=== PATIENT | female | born 1950 | race Caucasian/White ===

== ENCOUNTER 2017-06-15 11:57 | Emergency (ER) | payer MEDICAID ==
[~2017-06-15] VITALS: Ht 157.5 cm; Wt 79.0 kg
[2017-06-15 12:24] VITALS: BP 128/93
[2017-06-15 14:01] LABS: HEMATOCRIT. 41.4 % (36.0-48.0); HEMOGLOBIN. 13.7 g/dL (12.0-16.0); MEAN CORPUSCULAR HEMOGLOBIN 28.4 pg (28.0-32.0); MEAN CORPUSCULAR VOLUME 85.9 fL (81.0-99.0); MEAN PLATELET VOLUME 7.5 fl (7.4-10.4); PLATELET 197 x1000/uL (130-400); RED BLOOD CELL COUNT 4.81 mill/uL (4.2-5.4); RED CELL DISTRIBUTION WIDTH 14.1 % (11.6-14.6)
[2017-06-15 14:17] LABS: PLATELET ESTIMATE NORMAL
[2017-06-15 14:22] LABS: CHLORIDE 107 mEq/L (98-107)
== END 2017-06-15 15:42 | disposition home or self-care (01) ==
LOC: ER 13:13
DX: R05 Cough (principal); R09.3 Abnormal sputum; I10 Essential (primary) hypertension
CPT/HCPCS: 36415; 71045; 80053; 85025; 99285

== ENCOUNTER 2018-06-22 23:09 | Emergency (ER) | payer MEDICAID ==
[~2018-06-22] VITALS: Ht 157.5 cm; Wt 74.2 kg
[~2018-06-22 23:09] MED LIST: NIFE30TA94 PO; PANT40TA4 PO
[2018-06-23] MEDS ORDERED: IBUPROFEN 600MG TABLET PO ONE (03:45)
[2018-06-23 04:22] VITALS: BP 143/85
== END 2018-06-23 04:43 | disposition home or self-care (01) ==
LOC: ER 23:15
DX: J06.9 Acute upper respiratory infection, unspecified (principal); I10 Essential (primary) hypertension; Z90.49 Acquired absence of other specified parts of digestive tract; Z98.890 Other specified postprocedural states; Z79.899 Other long term (current) drug therapy
CPT/HCPCS: 71045; 99283

== ENCOUNTER 2018-11-23 21:07 | Emergency (ER) | payer MEDICAID ==
[~2018-11-23] VITALS: Ht 157.5 cm; Wt 77.5 kg
[2018-11-24] MEDS ORDERED: TRAMADOL 50MG TABLET PO ONE (01:30)
[2018-11-24 01:47] LABS: CHLORIDE 108 mEq/L (98-107)
[2018-11-24 01:58] LABS: BASOPHILS % 0.9 % (0.0-2.0); EOSINOPHILS % 6.1 % (0.0-5.0); HEMATOCRIT. 39.9 % (36.0-48.0); HEMOGLOBIN. 13.5 g/dL (12.0-16.0); MEAN CORPUSCULAR HEMOGLOBIN 29.4 pg (28.0-32.0); MEAN CORPUSCULAR VOLUME 87.2 fL (81.0-99.0); MONOCYTES % 12.1 % (2.0-8.0); NEUTROPHILS % 47.9 % (40.0-76.0); PLATELET 230 x1000/uL (130-400); RED BLOOD CELL COUNT 4.58 mill/uL (4.2-5.4); RED CELL DISTRIBUTION WIDTH 14.5 % (11.6-14.6)
[2018-11-24 04:49] VITALS: BP 144/91
== END 2018-11-24 05:02 | disposition home or self-care (01) ==
LOC: ER 21:07
DX: R07.89 Other chest pain (principal); I10 Essential (primary) hypertension; R20.2 Paresthesia of skin; M79.602 Pain in left arm; H53.8 Other visual disturbances
CPT/HCPCS: 36415; 71045; 83880; 84484; 93005; 99284